=== PATIENT | male | born 1950 | race Caucasian/White ===

== ENCOUNTER → 2019-11-30 11:03 | Outpatient (CLI) | payer MEDICARE, OTHER, SELFPAY ==
[2019-12-01 06:45] LABS: COVID19 Sendout Not Detected (Not Detect)
== END ==
PROVIDERS: Family Provider Internal Medicine; PCP Internal Medicine; Visit Provider Physician Assistant
DX: Z01.812 Encounter for preprocedural laboratory examination (principal)
CPT/HCPCS: 87635

== ENCOUNTER 2019-12-03 09:00 | Inpatient (IN) | payer MEDICARE, OTHER, SELFPAY ==
[2019-11-30 14:06] VITALS: BMI 28.4
[2019-12-03] VITALS (11 sets, daily range): BP systolic 104–147; BP diastolic 55–99; PULSE 75–99; RESP 10–28; TEMP 36.4–37.1; O2SAT 77–99; BMI 27.3
--- NOTE | 2019-12-03 | DI.RAD.S_ITS ---
PROCEDURE: XR LUMBAR SPINE 2-3V INDICATIONS: L4-5 TLIF TECHNIQUE: 2 views of the lumbar spine were acquired. COMPARISON: [facility], CT, ABDOMEN/PELVIS WITH CONTRAST, 06/30/2015, 12:44. [facility] [place], CR, XR LUMBAR SPINE 2 OR 3 VIEWS, 09/16/2019, 10:55. [facility], CR, L-SPINE 2-3 VIEWS, 06/30/2015, 9:01. FINDINGS: L3-S1 pedicle screw fixation with intervertebral body spacers. The L3-L4 level is new. IMPRESSION: Intraoperative fluoroscopic views of the L3-S1 pedicle screw fixation. Dictated by: Jabari Simpson M.D. on 12/03/2019 at 15:47 Approved by: Jabari Simpson M.D. on 12/03/2019 at 15:51
[2019-12-03] MEDS: LACTATED RINGERS 1,000 ML 42 ML IV ×2 (10:03→13:11)
--- NOTE | 2019-12-03 10:37 | PM.PREOP ---
Pre-operative Note COVID-19 COVID-19 status: Negative Result date/Date tested (Pos, Neg/Pending): 12/01/19 Interval Note History & Physical reviewed/Exam performed by Physician: Yes Changes to H&P: No
[2019-12-03] MEDS: CEFAZOLIN 2 GM/100 ML FROZ.PIGGY IV ×2 (11:13→19:01)
[2019-12-03] MEDS: BUPIVACAINE LIPOSOME 266 MG/20 ML VIAL INJ (11:51)
[2019-12-03] MEDS: BUPIVACAINE 0.25% W/ EPI 30 ML VIAL INJ (11:52)
--- NOTE | 2019-12-03 14:40 | P.OP_ITS ---
Operative Date/Time/Diagnoses Date of procedure: 12/03/19 Time of procedure: 11:12 Pre-op diagnosis: 1. L3-4 spinal stenosis 2. L4-5, L5-S1 hx of fusion 3. 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 L3-4 posterolateral and posterior interbody fusion 2. L3-4 posterior interbody cage placement 3. L4-5, L5-S1 posterior segmental instrumentation removal 4. L4-5, L5-S1 revision laminectomy with exploration of fusion 5. L3-4, L4-5, L5-S1 posterior segmental instrumentation with pedicle screw placement 6. L4-5 posterolatearl fusion 7. [place] of bone marrow from iliac crest through a separate incision 8. Utilization of microsurgical technique and operating microscope Same procedure as scheduled: Yes Indications: Patient has been having chronic back pain and worsening lumbar radiculopathy. Patient has been having progressively worsening back pain over the last 6 months. Patient failed multiple conservative management with worsening pain weakness and numbness in her lower extremity. Patient has been having difficulty performing activity of daily living. After discussing risks benefits of treatment options, patient elected proceed with surgery. Surgeon: Cristofer Gray Jboss Architect: Peace Linda Click Yes if Unassisted: No Anesthesia Type: General Operative Notes Closure Type: primary Specimen(s): none sent Prosthetic devices, grafts, tissues, transplants, or devices: Globus revolve screws, Rise cage Applied: catheter Estimated Blood Loss (mL): 100 Blood products transfused: none Procedure in detail: Patient was seen in the preoperative area. Risks and benefits of the surgery was discussed with the patient. Informed consent was obtained from the patient and placed in the chart. Surgical site was marked. Patient was taken to the operative room. General anesthesia was administered. Prophylactic antibiotic was given to the patient less than 30 min before the incision was made. Patient was placed into a prone position on the Rudy table. Patient's back was then prepped and draped in the sterile fashion. Time- out was performed at this time. Using patient's previous scar incision was made over the L3-4 L4-5 L5-S1 interva l on the left side. Fascia was incised in line with skin incision. Patient's previously placed hardware over the L4-5 L5-S1 level was identified by dissecting down to the level the hardware using a Bovie and a Chua. The locking caps which was removed using globus screwdriver. The locking joseph was then removed from the tulips of the pedicle screws using a Sascha. The pedicle screws were then removed using the screwdriver. The screws were found to have good purchase. The Globus and MARS retractors was then placed into the wound and docked onto the L3 lamina using C-arm guidance. Using microsurgical technique and operating microscope a laminectomy facetectomy was performed by removing the L3 lamina and the L3-4 facet. The disc space at L3-4 level was identified next. And a total diskectomy was performed at L3-4 level. The endplates were decorticated using a rasp and shaver. The total diskectomy and decortication was performed at L3-4 level in order to to accomplish a L3-4 fusion. The local bone from the laminectomy and facetectomy was saved for local bone grafting. After the total diskectomy and decortication was completed, Trifecta bone graft material was combined with local bone that was harvested earlier. At this time, a separate skin is incision was made over the iliac crest. A Jamshidi needle was inserted into the iliac crest through a separate skin incision. 5 cc of bone marrow aspiration was obtained through the separate skin incision using a Jamshidi needle from the iliac crest. The bone marrow aspiration was combined with local bone and the Trifecta bone grafting material. The bone grafting material was placed into the L3-4 interbody space along with a expandable cage. The cage was expanded to its maximum height using the torque limiting screwdriver. At this time a mirror image incision was made on the right side. The fascia was incised in line with the skin incision. Patient's previously placed hardware on the left side was then removed in the same fashion as it was on the right side. The hardware was also found to have good purchase. The fusion mass on the left side was exposed by performing a left-sided hemilaminectomy at L4-5 L5-S1 level. The hemilaminectomy was performed using the Kerrison rongeur to undercut the lamina as well removing additional epidural scar tissue for purpose of decompressing the epidural space. The fusion mass was explored and was found have visible motion indicating pseudoarthrosis at L4-5 level. The fusion appears to be solid L5-S1 level. Globus MARS retractor was inserted and docked onto the L4-5 and L3-4 posterolateral gutter. Using the power drill, posterior- lateral decortication was performed at L3-4 L4-5 level until bleeding cortical bone was identified. The remaining bone grafting material was placed into the L3-4 L4-5 posterior lateral gutter he order to accomplish posterolateral fusion at the L3-4 L4-5 level. Using the double C-arm technique, pedicle screws were placed into the L3, L4 L5 and S1 pedicles bilaterally. This was done by placing the Jamshidi needle into the pedicles, then placing the guidewires over the Jamshidi needle, and finally placing the cannulated screws over the guidewires bilaterally. After the pedicle screws were placed, 2 titanium rods was locked into the heads of the pedicle screws using locking caps and torque limiting screwdriver. After all the hardware was placed, and confirmed with AP and lateral C-arm imaging, the wound was then irrigated with sterile normal saline and packed with Ray-Reina gauze for 3 min to accomplish hemostasis. After the gauze was removed the deep fascia was closed with #1 Vicryl suture. The subcutaneous layer was closed with 2-0 Vicryl. The skin was closed with skin peg. Patient tolerated the procedure well. There were no complications. Complications: none Post-operative Condition: stable Disposition: PACU Plan for aftercare: Admit to inpatient hospital
[2019-12-03] MEDS: HYDROMORPHONE 2 MG INJ IV ×8 (15:05→15:37)
[2019-12-03] MEDS: OXYCODONE IR 5 MG TABLET PO (15:17)
[2019-12-03] MEDS: hydrOXYzine 50 MG/ML INJ 25 MG IM (15:27)
[2019-12-03] MEDS: SODIUM CHLORIDE 0.9% 1,000 ML 100 ML IV (16:39)
[2019-12-03] MEDS: OXYCODONE IR 5 MG TABLET 10 MG PO (21:16)
[2019-12-03] MEDS: SENNOSIDES 8.6 MG TABLET 17.2 MG PO (21:17)
[2019-12-03] MEDS: DOCUSATE 100 MG CAPSULE PO (21:17)
[2019-12-03] MEDS: hydrOXYzine pamoate 25 MG CAPSULE PO (21:17)
[2019-12-04 00:23] VITALS: BP 149/90; PULSE 85; RESP 18; TEMP 37; O2SAT 97
[2019-12-04] MEDS: CEFAZOLIN 2 GM/100 ML FROZ.PIGGY IV (02:00)
[2019-12-04] MEDS: OXYCODONE IR 5 MG TABLET 10 MG PO ×2 (04:30→09:40)
[2019-12-04 04:32] VITALS: BP 131/80; PULSE 76; RESP 18; TEMP 37.1; O2SAT 96
[2019-12-04 05:05] LABS: Hematocrit 41.3 % (41-53); Hemoglobin 13.6 g/dL (13.5-17.5)
--- NOTE | 2019-12-04 05:48 | PC.NURSE ---
gate shear operator note: Patient with very little sleep throughout the shift. Patient expressing discomfort and cramping. PRN Percolone administered x1 for pain 07/27. Surgical incision site with dressing intact, drainage present and outlined by this RN at beginning of shift. No further drainage noted. CMS/neuro status remains intact. Patient ambulated to restroom with assistance of this RN and front wheel walker. Spine precautions in place. Patient unable to have BM but passing large amounts of gas. Good urine ouput from sue cath. IV fluids d/c this AM. Patient eating/drinking well with no complaints of N/V. Patient remains on RA, lungs clear, VSS.
[2019-12-04 07:13] VITALS: BP 128/76; PULSE 78; RESP 16; TEMP 36.6; O2SAT 95
[2019-12-04 08:45] VITALS: BP 128/76
[2019-12-04] MEDS: lisinopriL 20 MG TABLET PO (08:45)
[2019-12-04] MEDS: AMLODIPINE 5 MG TABLET PO (08:46)
[2019-12-04] MEDS: COLCHICINE 0.6 MG TABLET PO (08:46)
[2019-12-04] MEDS: DOCUSATE 100 MG CAPSULE PO (08:46)
[2019-12-04] MEDS: PANTOPRAZOLE 40 MG TABLET PO (08:46)
[2019-12-04] MEDS: GABAPENTIN 300 MG CAPSULE 600 MG PO (08:46)
--- NOTE | 2019-12-04 08:59 | PM.DS.1 ---
History of Present Illness History of Present Illness Date Patient Seen: 12/04/19 Time Patient Seen: 09:00 Chief complaint: Translaminar Interbody Fusion/Laminotomy Narrative: Pain mild. home to assist him. No fever or chills. No N/V. Discharge Providers Provider Date of admission: 12/03/19 09:00 Discharge Date: 12/04/19 Primary care physician: Reymundo Mireles MD Consults: 12/03/19 16:17 Consult to Occupational Therapy Evaluate & Treat Comment: Physician Instructions: Evaluate and treat Consult to Physical Therapy Evaluate & Treat Comment: Physician Instructions: Evaluate and Treat Discharge provider: Balaji Kerr PA-C Summary Hospital Course Discharge Diagnosis: Pre-op diagnosis: 1. L3-4 spinal stenosis 2. L4-5, L5-S1 hx of fusion 3. L3-4, L4-5 spondylosis with radiculopathy Hospital Course: Procedure: 1. L3-4 posterolateral and posterior interbody fusion 2. L3-4 posterior interbody cage placement 3. L4-5, L5-S1 posterior segmental instrumentation removal 4. L4-5, L5-S1 revision laminectomy with exploration of fusion 5. L3-4, L4-5, L5-S1 posterior segmental instrumentation with pedicle screw placement 6. L4-5 posterolatearl fusion 7. Hugo of bone marrow from iliac crest through a separate incision 8. Utilization of microsurgical technique and operating microscope Same procedure as scheduled: Yes Indications: Patient has been having chronic back pain and worsening lumbar radiculopathy. Patient has been having progressively worsening back pain over the last 6 months. Patient failed multiple conservative management with worsening pain weakness and numbness in her lower extremity. Patient has been having difficulty performing activity of daily living. After discussing risks benefits of treatment options, patient elected proceed with surgery. Surgeon: Cristofer Gray Real Estate Asset Manager: Peace Linda Click Yes if Unassisted: No Anesthesia Type: General Operative Notes Closure Type: primary Specimen(s): none sent Prosthetic devices, grafts, tissues, transplants, or devices: Globus revolve screws, Rise cage Applied: catheter Estimated Blood Loss (mL): 100 Blood products transfused: none Status at Discharge Cognitive/behavioral status at discharge: at baseline, oriented Functional status at discharge: uses cane/walker Overall status at discharge: patient is progressing back to baseline Time Spent with Patient Time spent: Less than 30 minutes Exam Vital Signs (past 8 hours): - 12/04/19 04:32 12/04/19 07:13 12/04/19 08:45 Temperature 98.8 F 97.8 F Pulse Rate 76 78 Respiratory Rate 18 16 Blood Pressure 131/80 128/76 128/76 Pulse Oximetry 96 95 Oxygen Delivery Method Room Air Oxygen Flow Rate 0 Narrative Exam Narrative: Pleasant 69-year-old male sitting in bedside chair having breakfast. Patient is no apparent distress. Proximal quarter size area of drainage along the mid dressing. Dressing is otherwise intact. Sensation grossly intact to light touch bilateral lower extremities. Motor functions intact bilateral lower extremities. Both legs are warm and dry. Objective Labs Result Diagrams: 12/04/19 04:35 Labs: Laboratory Results - last 24 hr 12/04/19 04:35 Hgb 13.6 Hct 41.3 Discharge Assessment & Plan Assessment and Plan Assessment: Patient progressing as expected status post lumbar fusion. Limit bending, twisting, lifting. Weightbearing as tolerated. Discharge home today in stable condition. Discharge Plan Discharge Plan Patient Disposition: Home Discharge orders & Medications Prescriptions: New acetaminophen 325 mg Tablet 650 mg PO Q6HR PRN (Reason: Pain, Mild (1-3)) Qty: 60 RF: 0 docusate sodium [DOK] 100 mg Capsule 100 mg PO BID Qty: 20 RF: 0 oxycodone 5 mg Tablet 5 mg PO Q3HR PRN (Reason: Pain, Severe (7-10)) Qty: 60 RF: 0 hydroxyzine pamoate 25 mg Capsule 25 mg PO Q4HR PRN (Reason: Nausea And Vomiting) Qty: 20 RF: 0 Continued pantoprazole [Protonix] 40 MG tablet,delayed release (DR/EC) 40 mg PO DAILY Qty: 0 RF: 0 amlodipine [Norvasc] 5 MG tablet 5 mg PO Q DAY Qty: 0 RF: 0 ibuprofen 200 mg Capsule 800 mg PO DAILY RF: 0 lisinopril 20 mg Tablet 20 mg PO DAILY RF: 0 gabapentin 300 mg Capsule 600 mg PO DAILY RF: 0 colchicine [Colcrys] 0.6 mg Tablet 0.6 mg PO DAILY RF: 0 allopurinol 300 mg tablet 300 mg PO DAILY RF: 0 testosterone cypionate [Depo-Testosterone] 200 mg/mL oil 200 mg IM Q2W RF: 0 Follow up/Referrals: Reymundo Mireles MD [Primary Care Provider] - Cristofer Gray MD [Physician] - (2 weeks) Diet/Activity/Treatments Diet: Diet as Tolerated Activity: WBAT, limit bending, lifting, twisting Cold/Heat Therapy: ice as needed Skin/Wound/Dressing Care Report to your healthcare provider any signs of infection, such as:: chills, fever, increased pain, unusual drainage and unusual redness Dressing: Keep clean and dry Visit Report/Discharge Packet Instructions: DI for Heart Failure, DI for Prescription Opioid Use, DI for Transforaminal Lumbar Interbody Fusion Stand Alone Forms: Surgery Discharge Discharge Data Primary Care Provider: Reymundo Mireles
[2019-12-04] MEDS: allopurinoL 300 MG TABLET PO (09:00)
[2019-12-04] MEDS: INFLUENZA HD VACCINE 0.7 ML SYRINGE IM (09:00)
--- NOTE | 2019-12-04 09:30 | PT.IIE ---
Current Diagnoses Spondylolisthesis, lumbar region (12/03/19) Other spondylosis with radiculopathy, lumbosacral region (12/03/19) Spinal stenosis, lumbar region without neurogenic claudication (12/03/19) Arthrodesis status (12/03/19) Surgery Performed Operation Date: 12/03/19 10:45 Actual Procedures p L3-4 TLIF, L4-S1 HWR, exploration of fusion, repeat laminectomy, reinsertion of hardware - Cristofer Gray MD Surgical History (Last Updated 11/25/19 @ 12:39 by Aria Garza RN) History of lumbar fusion (Acute) History of surgery (Acute) History of vasectomy (Acute) Hx of appendectomy (Acute) Hx of cervical spine surgery (Acute) Hx of cholecystectomy (Acute) Hx of repair of right rotator cuff (Acute) Hx of thumb surgery (Acute ~2017) Hx of thyroidectomy (Acute) Hx of tonsillectomy (Acute) S/P cervical spinal fusion (Acute 11/2014) S/P cervical spinal fusion (Acute 03/2015) Medical History (Last Updated 12/02/19 @ 10:29 by Aria Garza RN) Bladder cancer (Acute) BPH (benign prostatic hyperplasia) (Acute) Fall (Acute 07/11/19) GERD (gastroesophageal reflux disease) (Acute) Gout (Acute) HTN (hypertension) (Acute) Neuropathy (Acute) Raynaud's phenomenon (Acute) RBBB (right bundle branch block) (Acute) Sebaceous cyst (Acute) Traumatic injury (Acute) Traumatic injury (Acute 04/2015) Physical Therapy Inpatient Evaluation/Re-Eval M1 PT/OT-IP Prior Functional Status Start: 12/04/19 10:41 Freq: NEEDED Status: Active Protocol: Document 12/04/19 09:30 AB (Rec: 12/04/19 10:49 AB [id number]) Medical Review Prior Functional Status Medical History Reviewed Yes Communication able to make needs known Mobility and Gait pt stated that he is independent with all mobilities and ambulation without AD Social History Household Members spouse Living Arrangements House Number of Floors (Floors) One Floor Number of Stairs To Enter/Railing? ramp to enter Home Environment High Toilet,Walk in Shower Home Equipment Front Wheel Walker,Hand Held Shower Additional Social History Comment pt stated that this is his 3rd back surgery M2 PT-IP Current Condition Start: 12/04/19 10:41 Freq: NEEDED Status: Active Protocol: Document 12/04/19 09:30 AB (Rec: 12/04/19 10:49 AB [id number]) Physical Therapy Current Condition Current Condition Evaluation Date 12/04/19 Treatment Diagnosis s/p L3-4, L4-5 fusion; difficulty in walking Onset Date 12/03/19 Precautions Lumbar Precautions Log Roll,No Twisting,Limit Bending,Lifting Restriction of 10 lbs,Gait Belt above Incisional Area M3 PT-IP Subjective Start: 12/04/19 10:41 Freq: NEEDED Status: Active Protocol: Document 12/04/19 09:30 AB (Rec: 12/04/19 10:49 AB [id number]) Subjective Physical Therapy Visit Type Type Initial Evaluation Visit Start Time 09:30 Visit Stop Time 09:54 Total Visit Minutes 24 Number of ADMINISTRATION SPECIALIST Visits 0 Physical Therapy Visit Comments Patient Comments pt is agreeable to do PT Therapy Pain Assessment Pain When Pain Assessed At Rest Pain Present Pain Present Pain Reported Location back Intensity 2 Scale Used Numeric (0 - 10) Pain Management Techniques Modification of Treatment,Re- positioning,Timing of Activity with Medications M4 PT-IP Mobility and Gait Start: 12/04/19 10:41 Freq: NEEDED Status: Active Protocol: Document 12/04/19 09:30 AB (Rec: 12/04/19 10:49 AB [id number]) PT-Bed Mobility Assessment Rolling Level of Assist Independent Supine to Sit Supine to Sit Independent Sit to Supine Sit to Supine Standby Assistance Scooting Scooting to Edge of Bed Standby Assistance Scooting Up and Down in Bed Standby Assistance PT-Transfer Assessment Sit to and From Stand Sit to and from Stand Standby Assistance Equipment Transfer Assistive Device Gait Belt,Front Wheeled Walker Orthotic/Prosthetic Devices or Brace: No Transfers Transfer Destination Bed,Chair Transfer Technique ambulation Transfer Ability Level of Assist Standby Assistance,1 Person Assistance,Use of Upper Extremities Comments Mobility Comments pt able to recall back precautions and log roll bed mobility. pt completed sit to stand from chair SBA and ambulated to the bed using FWW SBA. completed log roll bed mobility mod I. pt ambulated in the hallway using FWW SBA ~ 150 ft. pt sat back on the chair. positioned on the chair. call light and table placed within reach. pt with no other concerns Gait Assessment Gait Gait Assistance Required: Standby Assistance Distance (Feet) 150 Able to Maintain Weight Bearing Status Yes During Gait Assistive Devices Assistive Device Gait Belt,Front Wheeled Walker Orthotic/Prosthetic Devices or Brace: No Factors Limiting Gait Function Factors Limiting Gait Function Decreased Strength,Pain,Poor Balance,Poor Safety Awareness PT-Balance Assessment Sitting Balance and Reactions Static Sitting Balance Ability Normal Dynamic Sitting Balance Ability Normal Standing Balance and Reactions Static Standing Balance Ability Good Dynamic Standing Balance Ability Fair Device Used FWW M5 PT-IP Objective Assessments Start: 12/04/19 10:41 Freq: NEEDED Status: Active Protocol: Document 12/04/19 09:30 AB (Rec: 12/04/19 10:49 AB [id number]) Orientation Orientation/Cognition Level of Alertness Alert Orientation Name,Age,Birthday,Month,Date, Year,Day of Week,Place, Situation Language Function Ability No Deficits Noted Safety Awareness Understands Safety Issues Memory Description No Deficits Noted Gross Range of Motion Lower Extremity ROM Assessment Within Functional Limits Strength Lower Extremity Strength Assessment Right Impaired Hip 4-/5 Knee 4-/5 Coordination Assessment Gross Coordination Gross Coordination WNL Sensation Assessment Sensation Gross Sensation WNL Muscle Tone Muscle Tone WNL Yes M6 PT-IP Treatment Start: 12/04/19 10:41 Freq: NEEDED Status: Active Protocol: Document 12/04/19 09:30 AB (Rec: 12/04/19 10:49 AB [id number]) Physical Therapy Treatment Education Education Provided Precautions,Weight Bearing Status,Post-Op Packet,Safety M7 PT-IP Assessment and Plan Start: 12/04/19 10:41 Freq: NEEDED Status: Active Protocol: Document 12/04/19 09:30 AB (Rec: 12/04/19 10:49 AB [id number]) PT Summary Assessment and Plan Potential Rehabilitation Potential Good Status of Condition at Evaluation Stable Summary Impairments Pain,ROM,Strength,Balance, Coordination,Sensation,Tone, Cognition,Bed Mobility, Transfers,Gait,Activity Tolerance Assessment Summary pt requiring SBA with mobility and will have his spouse to assist him at home. pt may go home when stable Goals Transfer Goal Independent,Front Wheeled Walker Gait Goal Independent,Front Wheel Walker Gait Distance 250 Days to Meet Goals 3 Frequency of Treatment Frequency Of Treatment Twice a Day Treatment Plan Physical Therapy Treatment Plan Bed Mobility Training,Transfer Training,Gait Training, Therapeutic Exercise,Balance Retraining,Post Op Education, Discharge Planning,Hot or Cold Pack,Neuromuscular Re-ed, Coordination Retraining,Manual Therapy Recommendations To Nursing Amount of Assist Needed Standby Assistance Discharge Recommendations PT Discharge Recommendations Home with Assistance Transportation Needs at Discharge Private Vehicle
--- NOTE | 2019-12-04 09:42 | PC.NURSE ---
HL removed, dsg to back changed. Pt has called his spouse to pick him up at 1100. Went over d/c instructions with Pt. Discussed d/c meds, time of last dose, reviewed stroke education, back precautions, encouraged fluid intake to prevent constipation or dehydration and not to drive while on narcotics. Pt denies further questions and is now working with PT.
[2019-12-04] MEDS: hydrOXYzine pamoate 25 MG CAPSULE PO (11:22)
[2019-12-04] MEDS: ACETAMINOPHEN 325 MG TABLET 650 MG PO (11:22)
--- NOTE | 2019-12-04 11:26 | OT.IPNOTE ---
Attempted to see pt for OT eval. Pt is dressed and ready to discharge. Pt states he knows his back precautions and has a fire management specialist at home but needs a sock aid. Sock aid provided and pt states no need for instruction as his is an RN and will teach him. Pt left sitting up in chair as found. No OT eval performed.
--- NOTE | 2019-12-04 11:37 | PC.NURSE ---
Pt transferred independently with fww and steady gait to w/c for dc. Pt was escorted to exit by BIOLOGICAL AIDE in no distress. Pt had all belongings.
--- NOTE | 2019-12-04 12:59 | CM.DANOTE ---
Discharge Planning/Care Management DCP: assessment: Case received, EMR reviewed and d/c to home setting noted. Discussed in Team Rounds. PT and OT were ordered. Pt would be seen for first evals today. Pt is a 69 year old male who admitted yesterday for a planned spinal/lumar surgery. Surgeon: Dr. Gray Payer: Medicare and [employer] A check in now shows that pt was seem this morning, ok'd for home setting and he left for home late morning in company of his . No d/c needs were identified by the care team members. CM Discharge Assessment Start: 12/04/19 12:58 Freq: Status: Discharge Protocol: Document 12/04/19 12:59 ITV (Rec: 12/04/19 12:59 ITV [id number]) Discharge Planning Assessment Advance Directives? No History Provided By Medical Record Prior Living Arrangements House Household Members spouse Pre-Anesthesia Assessment Start: 11/25/19 09:54 Freq: Status: Discharge Protocol: Document 11/30/19 14:06 CAB (Rec: 11/30/19 14:29 CAB [id number]) Pre-Anesthesia Assessment PAC Comment Pre-op EKG 11/18/19-no significant change from EKGs @ [facility] '16, '12 Patient Information Reviewed Via Phone Assessment Assessment Completed With Patient Diagnostic Results BMP/CMP,CBC Comment Outside lab/EKG scanned COVID screen @ [facility] 11/30/19-Negative Primary Care Provider Reymundo Mireles Seen Specialist in Last 12 Months Yes Specialist Seen Orthopedist Primary Language Ukrainian Women Specialist Required No Height 180.34 cm Weight 92.533 kg Body Mass Index (BMI) 28.4 Hearing Ability Normal Visual Impairment No Limitations Dentition Type Teeth, Natural Present,Teeth, Missing Barriers to Learning None Hx Anesthesia Reactions No Hx Family Anesthesia Reaction No Hx Malignant Hyperthermia No Hx Blood Transfusions No Anesthesia Review Requested No alcohol intake current alcohol intake frequency 3 or more drinks per day Smoking Status Former smoker Tobacco type cigarettes Smoking packs per day 2 how long ago did patient quit smoking Quit 2003 Substance Use Type does not use Pain Present Pain Reported Musculoskeletal Symptoms Abnormal Gait,Back Pain, Difficulty Walking,Numbness Patient is completely paralyzed or No completely immobile Mental Status Oriented to own ability Is patient on oxygen? No Does patient have HARDING/SOB No Hx Sleep Apnea No Currently Taking a Beta Ramya No Hx Chest Pain No Hx SOB No Hx Syncope or Dizziness No Anti-Coagulant Therapy No Has a Network Support Administrator No Cardiac Testing No Hx Pacemaker/ICD No Pacemaker Rep Required? No Diet Type At Home Regular dysphagia No Gastrointestinal Symptoms Reflux Bladder Pattern Nocturia Urinary Catheter Present No Hx Urinary Self Catheterization No Diabetes No Hx Drug Resistant Organism No Presence of External or Internal Medical Yes: cervical/lumbar hardware Devices Have you had any close contact with No someone diagnosed with COVID-19? Marital Status Lives With spouse Patient Discharge Plan Description Return Home Feels Safe in Current Environment Yes Been Physically Hurt or Threatened By a No Person in Current Environment Do you have thoughts of harming yourself None or others? Are you currently considering suicide? No Do you have a plan to hurt yourself or No Plan others? Do You Have Any Spiritual Beliefs That No May Affect Your HC Choices? Do You Have Any Cultural Practices That No May Affect Your HC Choices? Who Can We Speak to About Patient's Care Family, friends Identifying Code for Release of Patient Declines to issue Information Health Care Proxy/Next of Kin Line () Health Care Proxy Emergency Contact Name Line () Emergency Contact PAC Instructions Durable medical equipment, Medications to take/avoid, Nasal antibiotic,No ETOH/ petroleum product on skin DOS, NPO,Pre-surgical wash,Sturdy shoes/comfortable clothes,Do not bring valuables and remove jewelry
== END 2019-12-04 11:30 | disposition home or self-care (01) | DRG 454 ==
PROVIDERS: Admitting Provider Orthopaedic Surgery Orthopaedic Surgery of the Spine; Family Provider Internal Medicine; PCP Internal Medicine; Referring Provider Orthopaedic Surgery Orthopaedic Surgery of the Spine; Visit Provider Orthopaedic Surgery Orthopaedic Surgery of the Spine
PROC: 0SG00AJ Fusion of Lumbar Vertebral Joint with Interbody Fusion Device, Posterior Approach, Anterior Column, Open Approach (ICD-10-PCS; principal; 2019-12-03 10:45)
DX: M51.16 Intervertebral disc disorders with radiculopathy, lumbar region (principal); M96.0 Pseudarthrosis after fusion or arthrodesis; M48.061 Spinal stenosis, lumbar region without neurogenic claudication; M47.26 Other spondylosis with radiculopathy, lumbar region; Z01.812 Encounter for preprocedural laboratory examination; Z11.59 Encounter for screening for other viral diseases
CPT/HCPCS: 36415; 72100; 76000; 85014; 85018; 87635; 90471; 90662; 97161; C1776; C9290; J0330; J0690; J1100; J1170; J2405; J2704; J3010; J3410

== ENCOUNTER → 2020-11-02 14:14 | Outpatient (CLI) | payer MEDICARE, OTHER, SELFPAY ==
[2019-12-03 16:44] VITALS: BMI 27.3
== END ==
PROVIDERS: Family Provider Internal Medicine; PCP Internal Medicine; Referring Provider Podiatrist; Visit Provider Podiatrist
DX: G57.61 Lesion of plantar nerve, right lower limb (principal); G57.62 Lesion of plantar nerve, left lower limb
CPT/HCPCS: 95886; 95911

== ENCOUNTER → 2024-06-15 12:58 | Outpatient (CLI) | payer MEDICARE, OTHER, SELFPAY ==
[2019-12-03 16:44] VITALS: BMI 27.3
--- NOTE | 2024-06-15 13:00 | DI.MRI.S_ITS ---
PROCEDURE: MR LUMBAR SPINE WO CON INDICATIONS: LUMBAR SPINE PAIN/LUMBAR FUSION TECHNIQUE: Noncontrast sagittal T1 spin echo and T2 fast echo, sagittal STIR, and T2 fast spin echo through the lumbar spine. In cases with scoliosis, additional coronal T2 fast spin echo may be performed. COMPARISON: [facility] Outside Film, MR, MR LUMBAR SPINE WITHOUT CONTRAST, 02/06/2019, 9:55. FINDINGS: Image quality: Excellent The last well-formed disc space is considered as L5-S1. Rudimentary disc is seen at S1-2. Posterior fusion instrumentation with interbody spacer at L3-S1. Mild levoscoliosis lumbar spine, centered at L3-4. Mild retrolisthesis of L3 on L4. Grade 1 anterolisthesis of L5 on S1. Marked fibrovascular end plate change at L2-3. Vertebral body height of the lumbar spine are well maintained. Multilevel disc bulge and disc desiccation. Conus terminates at the level of L1-2, and is unremarkable. Right neural foraminal stenosis: Mild at L2-3, and L5-S1. Left neural foraminal stenosis: Mild at L2-3, and moderate at L5-S1. Axial images: T12-L1: Mild disc bulge. No central canal stenosis. L1-2: Mild disc bulge. No central canal stenosis. L2-3: Central disc extrusion, with inferior extension of approximately 1.7 cm. Mild bilateral facet arthropathy with ligamentum flava hypertrophy. Epidural lipomatosis. Severe central canal stenosis. L3-4: Mild right, moderate left facet arthropathy. No central canal stenosis. L4-5: No central canal stenosis. L5-S1: Mild bilateral facet arthropathy. Posterior disc uncovering. No central canal stenosis. Visualized sacrum is intact. No abdominal aortic aneurysm. There is mild T2 hyperintensity at the right inferior hannah liver, measuring approximately 1.4 cm (6:5), which may be artifactual. IMPRESSION: 1. Postprocedure changes described above. 2. Multilevel degenerative changes lumbar spine, most pronounced at L2-3, where there is central disc extrusion, resulting in severe central canal stenosis and mild bilateral neural foraminal stenosis, progressed from prior exam. 3. Mild T2 hyperintensity at the right inferior hannah liver, which may be artifactual. However, underlying lesion cannot be excluded. Dictated by: Sully Vega M.D. on 06/15/2024 at 14:38 Approved by: Sully Vega M.D. on 06/15/2024 at 14:56
--- NOTE | 2024-06-15 13:00 | DI.CT.S_ITS ---
PROCEDURE: CT LUMBAR SPINE WO CON INDICATIONS: LUMBAR SPINE PAIN/LUMBAR FUSION TECHNIQUE: Noncontrast 3 mm thick sections acquired from the T12 level to the sacrum. Sagittal and coronal reformats were constructed. For radiation dose reduction, the following was used: automated exposure control. COMPARISON: [facility] Outside Film, MR, MR LUMBAR SPINE WITHOUT CONTRAST, 02/06/2019, 9:55. [facility] [place], CR, XR LUMBAR SPINE 2 OR 3 VIEWS, 10/03/2020, 10:19. [facility], CR, XR LUMBAR SPINE WITH FLEXION EXTENSION 5 VIEWS, 06/10/2024, 12:34. FINDINGS: Image quality: Excellent. Bones: 5 non rib-bearing lumbar vertebrae. Status post mature L3-S1 TLIF with intervertebral disc cage placement and posterior decompression, without hardware complication. The vertebral body heights are preserved. Alignment: Mild straightening of the lumbar lordosis. Minimal dextrocurvature of the lumbar spine with the apex at L3. Discs: Vacuum disc phenomenon at the L1-L2 and L2-L3 levels. Central canal: Although the epidural space is not well assessed on CT, there is no severe central canal stenosis. Neural foramina: Mild bilateral neural foraminal stenoses at the L3-L4, L4-L5, and L5-S1 levels. No severe foraminal stenosis. Prevertebral soft tissues: Status post cholecystectomy. Moderate aortoiliac atherosclerosis without aneurysmal dilatation. Scattered sigmoid colonic diverticulosis. Left superior medial pole 1.6 cm simple cyst (). IMPRESSION: 1. Status post L3-S1 TLIF and posterior decompression without hardware complication. 2. No severe central canal stenosis. 3. No severe foraminal stenosis. Dictated by: Blair Lobo M.D. on 06/15/2024 at 14:39 Approved by: Blair Lobo M.D. on 06/15/2024 at 15:06
== END ==
LOC: CT 12:59
PROVIDERS: Family Provider Internal Medicine; PCP Internal Medicine; Referring Provider Orthopaedic Surgery Orthopaedic Surgery of the Spine; Visit Provider Orthopaedic Surgery Orthopaedic Surgery of the Spine
DX: M47.816 Spondylosis without myelopathy or radiculopathy, lumbar region (principal); M47.817 Spondylosis without myelopathy or radiculopathy, lumbosacral region; M51.26 Other intervertebral disc displacement, lumbar region; M48.061 Spinal stenosis, lumbar region without neurogenic claudication; Z98.1 Arthrodesis status
CPT/HCPCS: 72131; 72148